=== PATIENT | male | born 1990 | race American Indian/Alaskan Native ===

== ENCOUNTER 2018-12-27 18:33 | Emergency (ER) | payer OTHER ==
--- NOTE | 2018-12-27 19:18 | Emergency Department Report ---
Blank Doc - Documentation Documentation: This is a 28-year-old male that presents with bilateral eye irritation and red ness. Stated he wears contact lens and believes scratch himself with the contact lens. This initial assessment/diagnostic orders/clinical plan/treatment(s) is/are subject to change based on patient's health status, clinical progression and re- assessment by fellow clinical providers in the ED. Further treatment and workup at subsequent clinical providers discretion. Patient/guardians urged not to elope from the ED as their condition may be serious if not clinically assessed and managed. Initial orders include: 1- Patient sent to [facility] for further evaluation and treatment 2- melara lamp 3- visual activity
[2018-12-27 19:19] VITALS: BP 116/78
[2018-12-27] MEDS ORDERED: BSS ONE (20:32)
[2018-12-27] MEDS ORDERED: TETRACAINE 0.5% ONE (20:32)
[2018-12-27] MEDS ORDERED: FUL-GLO OP ONE (20:33)
--- NOTE | 2018-12-27 20:55 | Emergency Department Report ---
ED Eye Problem HPI - General Chief complaint: Eye Problems Stated complaint: EYE IRRITATION Time Seen by Provider: 12/27/18 19:17 Source: patient Mode of arrival: Ambulatory Limitations: No Limitations - History of Present Illness Initial comments: Patient is a 28-year-old, male with no past medical history presents to the ED with complaint of acute onset persistent severe bilateral eye pain with erythematous conjunctiva, vomiting and pain and discharged the last 5 days. Patient states that he initially thought that there pain and redness in his eyes would resolve, and therefore he decided to wait at home. Patient denies change in vision, fever, chills, nausea, vomiting, Sinus congestion, sore throat or cough. Patient states that the redness and the pain initially started on the right eye but subsequently transferred to the left eye as well and now he has bilateral pain and redness with mattering. Patient admits to wearing contact lenses. MD chief complaint: eye pain, eye redness, other (Discharge, matting) -: Sudden, days(s) (5) Onset Description: sudden, awoke with symptoms Location: both eyes Place: home If Injury: none Eye Symptoms: burning, redness, pain, itching, discharge Severity: moderate Severity scale (0 -10): 5 If Pain, Quality: sharp, aching Consistency: constant Context: other (spontaneous) Associated Symptoms: none Treatments Prior to Arrival: none - Related Data Patient Tetanus UTD: Yes Previous Rx's Medication Instructions Recorded Last Taken Type Gentamicin 0.3% Ophth Soln 1 drops OP Q4H #1 bottle 12/27/18 Unknown Rx Ibuprofen [Motrin] 600 mg PO Q8H PRN #20 tablet 12/27/18 Unknown Rx Allergies Allergy/AdvReac Type Severity Reaction Status Date / Time No Known Allergies Allergy Unverified 12/27/18 18:37 ED Review of Systems ROS: Stated complaint: EYE IRRITATION Other details as noted in HPI Comment: All other systems reviewed and negative Constitutional: no symptoms reported Eyes: eye pain, eye discharge, other (bilateral redness) ENT: as per HPI Respiratory: no symptoms reported, see HPI Cardiovascular: as per HPI Endocrine: no symptoms reported Gastrointestinal: as per HPI Genitourinary: as per HPI Musculoskeletal: as per HPI Skin: as per HPI Neurological: as per HPI Psychiatric: as per HPI Hematological/Lymphatic: as per HPI ED Past Medical Hx - Past Medical History Previous Medical History?: No - Surgical History Past Surgical History?: No - Social History Smoking Status: Never Smoker Substance Use Type: None - Medications Home Medications: Home Medications Medication Instructions Recorded Confirmed Last Taken Type Gentamicin 0.3% Ophth Soln 1 drops OP Q4H #1 bottle 12/27/18 Unknown Rx Ibuprofen [Motrin] 600 mg PO Q8H PRN #20 tablet 12/27/18 Unknown Rx ED Physical Exam - General Limitations: No Limitations General appearance: alert, in no apparent distress - Head Head exam: Present: atraumatic, normocephalic - Eye Eye exam: Present: PERRL, EOMI, other (bilateral conjunctival erythema, purulent discharge and grossly matted bilaterally) Pupils: Present: normal accommodation - ENT ENT exam: Present: normal exam, normal orophraynx, mucous membranes moist - Neck Neck exam: Present: normal inspection - Respiratory Respiratory exam: Present: normal lung sounds bilaterally - Cardiovascular Cardiovascular Exam: Present: regular rate, normal rhythm, normal heart sounds - GI/Abdominal GI/Abdominal exam: Present: soft, normal bowel sounds - Rectal Rectal exam: Present: deferred - Extremities Exam Extremities exam: Present: normal inspection, full ROM, normal capillary refill - Back Exam Back exam: Present: normal inspection, full ROM - Neurological Exam Neurological exam: Present: alert, oriented X3, CN II-XII intact, normal gait, reflexes normal - Psychiatric Psychiatric exam: Present: normal affect - Skin Skin exam: Present: warm, dry, normal color ED Course Vital Signs 12/27/18 19:17 Temperature 98.2 F Pulse Rate 73 Respiratory 18 Rate Blood Pressure 116/78 O2 Sat by Pulse 98 Oximetry ED Medical Decision Making - Medical Decision Making Patient presented with complaint of bilateral eye pain with redness, matting and discharge bilaterally. Patient is hemodynamically stable, and is in no acute distress. Patient did not used any medications prior to arrival in the ED. Patient's symptoms have consistent with acute bacterial conjunctivitis. Patient discharged home on antibiotic eyedrops and oral pain medications, advised to follow up with his primary care physician in 5-7 days for reevaluation, or return to the ED immediately if symptoms get worse. - Differential Diagnosis Acute bacterial conjunctivitis, acute keratitis Critical care attestation.: If time is entered above; I have spent that time in minutes in the direct care of this critically ill patient, excluding procedure time. ED Disposition Clinical Impression: Acute bacterial conjunctivitis of both eyes Disposition: DC-01 TO HOME OR SELFCARE Is pt being admited?: No Does the pt Need Aspirin: No Condition: Stable Instructions: Conjunctivitis (ED) Additional Instructions: FOLLOW UP WITH YOUR PRIMARY CARE PHYSICIAN IN 5-7 DAYS FOR REEVALUATION. RETURN TO THE ED IMMEDIATELY IF SYMPTOMS GET WORSE. Prescriptions: Gentamicin 0.3% Ophth Soln 1 drops OP Q4H #1 bottle Ibuprofen [Motrin] 600 mg PO Q8H PRN #20 tablet PRN Reason: Pain Time of Disposition: 21:02 Print Language: BHUTANESE
== END 2018-12-27 21:13 | disposition home or self-care (01) ==
LOC: ED 18:33
DX: H10.9 Unspecified conjunctivitis (principal)
CPT/HCPCS: 99282